=== PATIENT | male | born 1985 | race Caucasian/White ===

== ENCOUNTER 2018-05-19 19:52 | Emergency (ER) | payer BC ==
[~2018-05-19] VITALS: Ht 180.3 cm; Wt 113.4 kg
[2018-05-19] MEDS ORDERED: ACETAMINOPHEN 325 MG TAB PO ONE (20:15)
[2018-05-19 20:35] LABS: BASOPHILS # (AUTO) 0.1 (0.0-0.1); BASOPHILS % 0.8 % (0.0-1.0); EOSINOPHILS # (AUTO) 0.3 (0.0-0.4); EOSINOPHILS % 3.6 % (0.0-6.0); HEMATOCRIT 49.8 % (38.2-49.6); HEMOGLOBIN 17.5 g/dL (14.0-18.0); LYMPHOCYTES # (AUTO) 3.2 (1.0-3.2); MEAN CORPUSCULAR HGB CONC 35.1 g/dL (31-35); MEAN CORPUSCULAR VOLUME 88.3 fL (81-99); MONOCYTES # (AUTO) 0.7 (0.2-0.8); MONOCYTES % 7.9 % (4.4-11.3); NEUTROPHILS # (AUTO) 4.5 (2.1-6.9); NEUTROPHILS % 51.5 % (38.7-80.0); PLATELET COUNT 222 x10e3/uL (140-360); RED BLOOD COUNT 5.64 x10e6/uL (4.3-5.7)
[2018-05-19 20:48] LABS: STREPTOCOCCUS GRP A ANTIGEN NEGATIVE (NEGATIVE)
[2018-05-19 20:54] LABS: ALANINE AMINOTRANSFERASE 84 IU/L (0-55); ALBUMIN 4.1 g/dL (3.5-5.0); ALBUMIN/GLOBULIN RATIO 1.4 (0.8-2.0); ALKALINE PHOSPHATASE 101 IU/L (40-150); ANION GAP 15.6 mmol/L (8-16); BLOOD UREA NITROGEN 14 mg/dL (7-26); BUN/CREATININE RATIO 13 (6-25); CALCIUM 9.4 mg/dL (8.4-10.2); CARBON DIOXIDE 23 mmol/L (22-29); CHLORIDE 106 mmol/L (98-107); CREATINE KINASE 264 IU/L (30-200); CREATININE, SERUM 1.04 mg/dL (0.72-1.25); EST GLOMERULAR FILTRATION RATE > 60 ML/MIN (60-); GLUCOSE 135 mg/dL (74-118); POTASSIUM 3.6 mmol/L (3.5-5.1); SODIUM 141 mmol/L (136-145)
[2018-05-19 20:58] LABS: INFLUENZAE A&B ANTIGEN (RAPID) NEGATIVE (NEGATIVE)
[2018-05-19 21:15] LABS: FREE THYROXINE INDEX 2.8311 (1.4-3.8); THYROID STIMULATING HORMONE 1.944 uIU/mL (0.350-4.940)
--- NOTE | 2018-05-19 21:22 | Diagnostic Imaging Report ---
CHEST 2 VIEWS, Technique: CHEST 2 VIEWS Comparison: None Clinical history: Chest pain DISCUSSION: Lateral is degraded by overlying arm. Heart size is borderline enlarged. No consolidation or edema. No effusion or pneumothorax. IMPRESSION: No acute abnormality Signed by: Dr Sharon Coe MD on 05/19/2018 9:18 PM
[2018-05-19 21:32] VITALS: BP 122/69
== END 2018-05-19 22:00 | disposition home or self-care (01) ==
LOC: ER 19:52
DX: R07.89 Other chest pain (principal); R50.9 Fever, unspecified; R05 Cough; B34.9 Viral infection, unspecified
CPT/HCPCS: 36415; 71046; 80053; 82550; 82553; 83518; 84436; 84443; 84479; 84484; 85025; 85379; 87070; 87400; 93005; 99283

== ENCOUNTER → 2018-05-31 | Outpatient (CLI) | payer BC ==
--- NOTE | 2018-05-31 11:16 | Diagnostic Imaging Report ---
EXAM: Right upper quadrant abdominal ultrasound INDICATION: Liver cirrhosis. COMPARISON: None. TECHNIQUE: Transverse and longitudinal images of the right upper quadrant abdomen were obtained FINDINGS: Somewhat limited study secondary to the patient's body habitus. Liver: Size: 15.5 cm in the right midclavicular line, upper limits of normal Appearance: Increased echogenicity, smooth contour Mass: No focal masses Gallbladder: No distension, pericholecystic fluid, wall thickening, stone, or reported sonographic Rey's sign. Gallbladder wall measures 0.3 cm. Bile Ducts: Intrahepatic Ducts: No dilatation Extrahepatic Ducts: Common bile duct measures 0.4 cm, no dilatation Pancreas: Limited evaluation due to the body habitus. Kidney: The right kidney measures 12.7 cm without evidence of hydronephrosis or stone. Vessels: Aorta: Limited evaluation due to the body habitus. Inferior Vena Cava: Limited evaluation due to the body habitus. Main Portal Vein: 1.2 cm, normal size with hepatopetal flow. Free Fluid: No evidence of ascites. IMPRESSION: Somewhat limited study secondary to the patient's body habitus. No sonographic evidence of cirrhosis. Hepatic steatosis. Liver measures at the upper limits of normal. Signed by: Dr. Mishel Varela MD on 05/31/2018 11:13 AM
== END ==
LOC: US 09:00
PROVIDERS: ATTEND Internal Medicine Interventional Cardiology
DX: K74.60 Unspecified cirrhosis of liver (principal)
CPT/HCPCS: 76705

== ENCOUNTER 2018-12-30 13:29 | Emergency (ER) | payer BC ==
[~2018-12-30] VITALS: Ht 180.3 cm; Wt 113.4 kg
--- OUTSIDE RECORDS SUMMARY | 2018-12-30 13:31 | XMS REPORT ---
Author Author [facility] Address Unknown Phone Unavailable Care Team Providers Care Sales Architect Name Role Phone ANCA ABRAHAM Unavailable Unavailable Jamarcus TYLER Unavailable Unavailable Problems This patient has no known problems. Allergies, Adverse Reactions, Alerts This patient has no known allergies or adverse reactions. Medications This patient has no known medications. Results Test Description Test Time Test Comments Text Results Atomic Results Result Comments LIVER 2018-05-31 11:07:00 [place] [address] Patient Name: FARHAD LAN MR #: [id number] : 1985 Age/Sex: 32/M Req #: [id number] Adm Physician: Ordered by: ANCA ABRAHAM MD Report #: [id number] Location: US Room/Bed: Procedure: [id number] US/US LIVER Exam Date: Exam Time: REPORT STATUS: Signed EXAM: Right upper quadrant abdominal ultrasound INDICATION: Liver c irrhosis. COMPARISON: None. TECHNIQUE: Transverse and longitudinal images of the right upper quadrant abdomen were obtained FINDINGS: Somewhat limited study secondary to the patient's body habitus. Liver: Size: 15.5 cm in the right midclavicular line, upper limits of normal Appearance: Increased echogenicity, smooth contour Mass: No focal masses Gallbladder: No distension, pericholecystic fluid, wall thickening, stone, or reported sonographic Rey's sign. Gallbladder wall measures 0.3 cm. Bile Ducts: Intrahepatic Ducts: No dilatation Extrahepatic Ducts: Common bile duct measures 0.4 cm, no dilatation Pancreas: Limited evaluation due to the body habitus. Kidney: The right kidney measures 12.7 cm without evidence of hydronephrosis or stone. Vessels: Aorta: Limited evaluation due to the body habitus. Inferior Vena Cava: Limited evaluation due to the body habitus. Main Portal Vein: 1.2 cm, normal size with hepatopetal flow. Free Fluid: No evidence of ascites. IMPRESSION: Somewhat limited study secondary to the patient's body habitus. No sonographic evidence of cirrhosis. Hepatic steatosis. Liver measures at the upper limits of normal. Signed by: Dr. Maria Guadalupe Stiles MD on 05/31/2018 11:13 AM Dictated By: MARIA GUADALUPE STILES MD 1113 Transcribed By: ZUNILDA on 05/31/18 1113 COPY TO: ANCA ABRAHAM MD CHEST 2 VIEWS 2018-05-19 21:18:00 [place] [address] Patient Name: FARHAD LAN MR #: [id number] : 1985 Age/Sex: 32/M Req #: [id number] Adm Physician: Ordered by: BLAINE TYLER MD Report #: [id number] Location: ER Room/Bed: Procedure: [id number] DX/CHEST 2 VIEWS Exam Date: 05/19/18 Exam Time: 2036 REPORT STATUS: Signed CHEST 2 VIEWS, Technique: CHEST 2 VIEWS Comparison: None Clinical history: Chest pain DISCUSSION: Lateral is degraded by overlying arm. Heart size is borderline enlarged. No consolidation or edema. No effusion or pneumothorax. IMPRESSION: No acute abnormality Signed by: Dr Stephen Coe MD on 05/19/2018 9:18 PM Dictated By: STEPHEN COE MD 17 T ranscribed By: ZUNILDA on 05/19/182117 COPY TO: BLAINE TYLER MD
[2018-12-30] MEDS ORDERED: ASPIRIN 81 MG CHEW TAB PO ONE (13:45)
[2018-12-30] MEDS ORDERED: DILTIAZEM HCL 5 MG/ML 5 ML VIAL IV ONE (13:45)
[2018-12-30 14:06] LABS: BASOPHILS # (AUTO) 0.1 (0.0-0.1); BASOPHILS % 0.7 % (0.0-1.0); EOSINOPHILS # (AUTO) 0.1 (0.0-0.4); EOSINOPHILS % 0.8 % (0.0-6.0); HEMATOCRIT 51.8 % (38.2-49.6); HEMOGLOBIN 17.8 g/dL (14.0-18.0); LYMPHOCYTES # (AUTO) 2.2 (1.0-3.2); LYMPHOCYTES % 29.4 % (18.0-39.1); MEAN CORPUSCULAR HEMOGLOBIN 30.9 pg (28-32); MEAN CORPUSCULAR HGB CONC 34.4 g/dL (31-35); MEAN CORPUSCULAR VOLUME 89.9 fL (81-99); MONOCYTES # (AUTO) 0.6 (0.2-0.8); MONOCYTES % 8.1 % (4.4-11.3); NEUTROPHILS # (AUTO) 4.5 (2.1-6.9); NEUTROPHILS % 60.6 % (38.7-80.0); PLATELET COUNT 226 x10e3/uL (140-360); RED BLOOD COUNT 5.76 x10e6/uL (4.3-5.7); RED CELL DISTRIBUTION WIDTH 13.1 % (11.7-14.4)
[2018-12-30 14:18] LABS: INR 0.94; PARTIAL THROMBOPLASTIN TIME 26.1 seconds (23.8-35.5); PROTHROMBIN TIME 13.1 seconds (11.9-14.5)
[2018-12-30 14:27] LABS: ALANINE AMINOTRANSFERASE 57 IU/L (0-55); ALBUMIN 4.2 g/dL (3.5-5.0); ALBUMIN/GLOBULIN RATIO 1.4 (0.8-2.0); ALKALINE PHOSPHATASE 101 IU/L (40-150); ANION GAP 17.1 mmol/L (8-16); BLOOD UREA NITROGEN 11 mg/dL (7-26); BUN/CREATININE RATIO 10 (6-25); CALCIUM 9.8 mg/dL (8.4-10.2); CARBON DIOXIDE 25 mmol/L (22-29); CHLORIDE 103 mmol/L (98-107); CREATINE KINASE 297 IU/L (30-200); EST GLOMERULAR FILTRATION RATE > 60 ML/MIN (60-); GLUCOSE 147 mg/dL (74-118); POTASSIUM 4.1 mmol/L (3.5-5.1); SODIUM 141 mmol/L (136-145)
--- NOTE | 2018-12-30 14:28 | Diagnostic Imaging Report ---
Exam: Chest radiograph Clinical History: Palpitation Comparison: May 19, 2018 Findings: The cardiomediastinal silhouette and lungs are normal. The regional skeleton and soft tissue are unremarkable. There is no evidence of pleural effusion or pneumothorax. Impression: No radiographic evidence of acute cardiopulmonary disease. Signed by: Dr. Huy Schulz MD on 12/30/2018 2:24 PM
[2018-12-30 14:38] LABS: BILIRUBIN,URINE NEGATIVE (NEGATIVE); CLARITY,URINE SL CLOUDY (CLEAR); COLOR,URINE YELLOW (YELLOW); KETONES,URINE NEGATIVE (NEGATIVE); LEUKOCYTE ESTERASE ,URINE NEGATIVE (NEGATIVE); NITRITE,URINE NEGATIVE (NEGATIVE); PROTEIN,URINE DIPSTICK 1+ (NEGATIVE); URINE UROBILINOGEN 1 mg/dL (0.2 - 1)
[2018-12-30 14:49] LABS: EPITHELIAL CELLS,URINE RARE /LPF
[2018-12-30 14:50] LABS: AMORPHOUS SEDIMENT,URINE FEW (FEW)
[2018-12-30 15:20] VITALS: BP 112/77
== END 2018-12-30 15:33 | disposition home or self-care (01) ==
LOC: ER 13:29
DX: R00.2 Palpitations (principal); R42 Dizziness and giddiness; R00.0 Tachycardia, unspecified; I10 Essential (primary) hypertension
CPT/HCPCS: 36415; 71045; 80053; 81001; 82550; 82553; 84484; 85025; 85379; 85610; 85730; 93005; 99284

== ENCOUNTER 2019-04-11 13:09 | Emergency (ER) | payer BC ==
[~2019-04-11] VITALS: Ht 180.3 cm; Wt 113.4 kg
[2019-04-11] MEDS ORDERED: ASPIRIN 81 MG CHEW TAB PO ONE (13:30)
[2019-04-11 13:40] LABS: BASOPHILS # (AUTO) 0.1 (0.0-0.1); BASOPHILS % 0.6 % (0.0-1.0); EOSINOPHILS # (AUTO) 0.2 (0.0-0.4); EOSINOPHILS % 2.5 % (0.0-6.0); HEMATOCRIT 51.4 % (38.2-49.6); HEMOGLOBIN 17.8 g/dL (14.0-18.0); LYMPHOCYTES # (AUTO) 2.5 (1.0-3.2); LYMPHOCYTES % 29.3 % (18.0-39.1); MEAN CORPUSCULAR HEMOGLOBIN 31.1 pg (28-32); MEAN CORPUSCULAR HGB CONC 34.6 g/dL (31-35); MEAN CORPUSCULAR VOLUME 89.9 fL (81-99); MONOCYTES # (AUTO) 0.8 (0.2-0.8); MONOCYTES % 9.9 % (4.4-11.3); NEUTROPHILS # (AUTO) 4.9 (2.1-6.9); NEUTROPHILS % 57.5 % (38.7-80.0); PLATELET COUNT 223 x10e3/uL (140-360); RED BLOOD COUNT 5.72 x10e6/uL (4.3-5.7); RED CELL DISTRIBUTION WIDTH 12.4 % (11.7-14.4)
[2019-04-11] MEDS ORDERED: ONDANSETRON HCL INJ 2MG/ML 2ML 2 MG/ML VIAL IV ONE (13:47)
[2019-04-11] MEDS ORDERED: METOPROLOL TARTRATE INJ 1 MG/ML VIAL IV ONE (14:00)
[2019-04-11 14:02] LABS: ALANINE AMINOTRANSFERASE 49 IU/L (0-55); ALBUMIN 4.1 g/dL (3.5-5.0); ALBUMIN/GLOBULIN RATIO 1.3 (0.8-2.0); ALKALINE PHOSPHATASE 108 IU/L (40-150); ANION GAP 15.4 mmol/L (8-16); BLOOD UREA NITROGEN 11 mg/dL (7-26); BUN/CREATININE RATIO 11 (6-25); CALCIUM 9.8 mg/dL (8.4-10.2); CARBON DIOXIDE 23 mmol/L (22-29); CHLORIDE 102 mmol/L (98-107); CREATINE KINASE 370 IU/L (30-200); CREATININE, SERUM 0.97 mg/dL (0.72-1.25); EST GLOMERULAR FILTRATION RATE > 60 ML/MIN (60-); GLUCOSE 134 mg/dL (74-118); MAGNESIUM 1.9 MG/DL (1.3-2.1); POTASSIUM 3.4 mmol/L (3.5-5.1); SODIUM 137 mmol/L (136-145)
--- NOTE | 2019-04-11 14:05 | Diagnostic Imaging Report ---
EXAMINATION: CHEST SINGLE (PORTABLE) INDICATION: Palpitation. COMPARISON: Chest radiograph 12/30/2018. FINDINGS: TUBES and LINES: None. LUNGS: Low lung volumes. Central vascular congestion. No evidence of pulmonary edema. Mild patchy bibasilar opacities, likely atelectasis. PLEURA: No pleural effusion or pneumothorax. HEART AND MEDIASTINUM: The cardiomediastinal silhouette is unremarkable. BONES AND SOFT TISSUES: No acute osseous abnormality. UPPER ABDOMEN: No free air under the diaphragm. IMPRESSION: Low lung volumes. Central vascular congestion without pulmonary edema. Signed by: Dr. Mishel Varela MD on 04/11/2019 2:01 PM
[2019-04-11] MEDS ORDERED: POTASSIUM CHLORIDE 20 MEQ TAB CR PO ONE (15:19)
--- NOTE | 2019-04-11 23:34 | Consultation ---
DATE OF CONSULTATION: 04/11/2019 Cardiology Consultation. INDICATION: Palpitations. HISTORY OF PRESENT ILLNESS: Mr. Powell is a 33-year-old gentleman, well known to me with a diagnosis of inappropriate sinus tachycardia. Recent electrophysiology Consult, normal stress test, normal echocardiogram, normal telemetry monitoring. Recently comes in with palpitations, heart rate up to 170 appeared to be sinus tachycardiac, narrow complex. He had some nausea and vomiting that accompanied, but he now feels better. He was given IV metoprolol. PAST MEDICAL HISTORY: Inappropriate sinus tachycardia. SOCIAL HISTORY: The patient does not smoke. He drinks alcohol on a social basis. MEDICATIONS: Reviewed and include metoprolol and Corlanor. REVIEW OF SYSTEMS: Negative except as dictated in the history of present illness. PHYSICAL EXAMINATION: VITAL SIGNS: Afebrile. Heart rate is 95, blood pressure is 128/70. CARDIOVASCULAR: Regular rhythm, tachycardic. No murmurs or gallops. LUNGS: Clear to auscultation bilaterally. ABDOMEN: Soft. Bowel sounds adequately. EXTREMITIES: Pedal pulse are 2+. DIAGNOSTIC DATA: EKG shows sinus tachycardia. ASSESSMENT: 1. Inappropriate sinus tachycardia. 2. High possibility of coronary artery spasm/variant angina. RECOMMENDATIONS: The patient has been ruled out for myocardial infarction. He can be discharged from the cardiac standpoint. Followup in the next 48 hours in the office for further evaluation of his symptoms including possible assessment for variant angina. I thank, Dr. Short for this consult. MD DENNIS Miller/YAZMIN /[id number]
== END 2019-04-11 16:01 | disposition home or self-care (01) ==
LOC: ER 13:09
DX: R00.2 Palpitations (principal); E87.6 Hypokalemia; K52.9 Noninfective gastroenteritis and colitis, unspecified
CPT/HCPCS: 36415; 71045; 80053; 82550; 82553; 83735; 84484; 85025; 85730; 93005; 99284; J2405